=== PATIENT | female | born 1970 | race Caucasian/White ===

== ENCOUNTER 2017-03-26 17:34 | Emergency (ER) | payer OTHER ==
[2017-03-26] MEDS ORDERED: Ondansetron 4 MG/2 ML SDV IV ONE (17:41)
[2017-03-26] MEDS ORDERED: Ketorolac 30 MG/ML SDV IVPUSH ONE (17:41)
[2017-03-26] MEDS ORDERED: HYDROmorphone 1 MG/ML Syringe IVPUSH ONE ×2 (17:41→18:03)
--- NOTE | 2017-03-26 17:45 | EDM.PDOC ---
<Hira Doe David - Last Filed: 03/26/17 18:53> ED HPI GENERAL MEDICAL PROBLEM - General Chief Complaint: Upper Extremity Injury/Pain Stated Complaint: ABD AND CHEST PAINS Time Seen by Provider: 03/26/17 17:45 Source of Information: Reports: Patient, RN, RN Notes Reviewed History Limitations: Reports: No Limitations Right Neck Pain Score (Numeric/FACES): 10 - Related Data Allergies Allergy/AdvReac Type Severity Reaction Status Date / Time No Known Allergies Allergy Verified 03/26/17 17:43 Home Meds: Home Meds . [No Known Home Meds] 07/05/16 [History] Past Medical History - Past Health History Medical/Surgical History: Denies Medical/Surgical History Social & Family History - Tobacco Use Smoking Status *Q: Never Smoker - Caffeine Use Caffeine Use: Reports: Coffee - Recreational Drug Use Recreational Drug Use: No Course - Vital Signs Last Recorded V/S: Last Vital Signs Temp 36.5 C 03/26/17 17:43 Pulse 100 03/26/17 17:43 Resp 16 03/26/17 17:43 BP 147/96 H 03/26/17 17:43 Pulse Ox 98 03/26/17 17:43 - Orders/Labs/Meds Orders: Active Orders 24 hr Category Date Time Status Peripheral IV Care [RC] . DIRECTED Care 03/26/17 17:41 Active Metoclopramide [Reglan] Med 03/26/17 19:22 Once 10 mg IVPUSH ONETIME ONE Sodium Chloride 0.9% [Saline Flush] Med 03/26/17 17:41 Active 10 ml FLUSH ASDIRECTED PRN Peripheral IV Insertion Adult [OM.PC] Stat Oth 03/26/17 17:40 Ordered Medication Orders Metoclopramide HCl (Reglan) 10 mg IVPUSH ONETIME ONE Stop: 03/26/17 19:23 Sodium Chloride (Saline Flush) 10 ml FLUSH ASDIRECTED PRN PRN Reason: Keep Vein Open Last Admin: 03/26/17 17:52 Dose: 10 ml Labs: Laboratory Tests 03/26/17 03/26/17 03/26/17 Range/Units 17:44 17:44 17:44 WBC 8.4 (5.0-10.0) 10^3/uL RBC 4.23 (4.2-5.4) 10^6/uL Hgb 9.1 L (12.0-16.0) g/dL Hct 31.1 L (37.0-47.0) % MCV 73.5 L (80-100) fL MCH 21.5 L (27.0-34.0) pg MCHC 29.3 L (33.0-35.0) g/dL Plt Count 515 H (150-450) 10^3/uL Neut % (Auto) 42.2 (42.2-75.2) % Lymph % (Auto) 46.2 (20.5-50.1) % [place] % (Auto) 9.7 H (2-8) % Eos % (Auto) 1.3 (1.0-3.0) % Baso % (Auto) 0.6 (0.0-1.0) % D-Dimer, Quantitative (0-400) ng/mL Sodium 136 (135-145) mmol/L Potassium 3.7 (3.6-5.0) mmol/L Chloride 103 (101-111) mmol/L Carbon Dioxide 24.0 (21.0-31.0) mmol/L Anion Gap 12.7 BUN 8 (7-18) mg/dL Creatinine 0.7 (0.6-1.3) mg/dL Est Cr Clr Drug Dosing TNP Estimated GFR (MDRD) > 60 BUN/Creatinine Ratio 11.42 Glucose 112 H (74-105) mg/dL Calcium 9.0 (8.4-10.2) mg/dl Total Bilirubin 0.2 (0.2-1.0) mg/dL AST 25 (10-42) IU/L ALT 13 (10-60) IU/L Alkaline Phosphatase 50 (42-121) IU/L C-Reactive Protein 0.5 (0.0-1.3) mg/dL Total Protein 7.2 (6.7-8.2) g/dl Albumin 3.7 (3.2-5.5) g/dl Globulin 3.5 Albumin/Globulin Ratio 1.06 /08/02 Range/Units 17:44 WBC (5.0-10.0) 10^3/uL RBC (4.2-5.4) 10^6/uL Hgb (12.0-16.0) g/dL Hct (37.0-47.0) % MCV (80-100) fL MCH (27.0-34.0) pg MCHC (33.0-35.0) g/dL Plt Count (150-450) 10^3/uL Neut % (Auto) (42.2-75.2) % Lymph % (Auto) (20.5-50.1) % [place] % (Auto) (2-8) % Eos % (Auto) (1.0-3.0) % Baso % (Auto) (0.0-1.0) % D-Dimer, Quantitative 290 (0-400) ng/mL Sodium (135-145) mmol/L Potassium (3.6-5.0) mmol/L Chloride (101-111) mmol/L Carbon Dioxide (21.0-31.0) mmol/L Anion Gap BUN (7-18) mg/dL Creatinine (0.6-1.3) mg/dL Est Cr Clr Drug Dosing Estimated GFR (MDRD) BUN/Creatinine Ratio Glucose (74-105) mg/dL Calcium (8.4-10.2) mg/dl Total Bilirubin (0.2-1.0) mg/dL AST (10-42) IU/L ALT (10-60) IU/L Alkaline Phosphatase (42-121) IU/L C-Reactive Protein (0.0-1.3) mg/dL Total Protein (6.7-8.2) g/dl Albumin (3.2-5.5) g/dl Globulin Albumin/Globulin Ratio Meds: Medications Generic Name Dose Route Start Last Admin Trade Name Freq PRN Reason Stop Dose Admin Metoclopramide HCl 10 mg 03/26/17 19:22 Reglan IVPUSH 03/26/17 19:23 ONETIME ONE Sodium Chloride 10 ml 03/26/17 17:41 03/26/17 17:52 Saline Flush FLUSH 10 ml ASDIRECTED PRN Administration Keep Vein Open Discontinued Medications Generic Name Dose Route Start Last Admin Trade Name Freq PRN Reason Stop Dose Admin Hydromorphone HCl 1 mg 03/26/17 17:41 03/26/17 17:51 Dilaudid IVPUSH 03/26/17 17:42 1 mg ONETIME ONE Administration Hydromorphone HCl 1 mg 03/26/17 18:03 03/26/17 18:08 Dilaudid IVPUSH 03/26/17 18:04 1 mg ONETIME ONE Administration Ketorolac Tromethamine 30 mg 03/26/17 17:41 03/26/17 17:52 Toradol IVPUSH 03/26/17 17:42 30 mg ONETIME ONE Administration Ondansetron HCl 4 mg 03/26/17 17:41 03/26/17 17:52 Zofran IV 03/26/17 17:42 4 mg ONETIME ONE Administration Departure - Departure Disposition: Home, Self-Care 01 Clinical Impression: Neuralgia of right upper extremity - Discharge Information Instructions: Cervical Sprain, [id number], Shoulder Sprain Forms: ED Department Discharge Care Plan Goals: The patient was advised of the examination, CT and x-ray results during the visit. The patient was given Toradol, Zofran, Reglan and Dilaudid while in the ED for symptom relief. The patient was discharged with Toradol (10 mg) #2 to take 1 by mouth every 6 hours, Flexeril (10 mg) #1 to take at bedtime and Jaffrey (10/325) #2 to take 1 by mouth every 6 hours as needed for pain. The patient was also given a script for 1) Toradol (10 mg) #18 to take 1 by mouth every 6 hours, 2) Flexeril (10 mg) #10 to take 1 by mouth at bedtime as needed and 3) Jaffrey (10/325) #8 to take 1 by mouth every 6 hours as needed for pain. If the patient has any additional symptoms or further concerns, the patient should follow-up with her primary care facility for continued evaluation and further management. - My Orders Last 24 Hours: My Active Orders 03/26/17 19:22 Metoclopramide [Reglan] 10 mg IVPUSH ONETIME ONE - Assessment/Plan Last 24 Hours: My Active Orders 03/26/17 19:22 Metoclopramide [Reglan] 10 mg IVPUSH ONETIME ONE <Tarik Medina - Last Filed: 03/26/17 19:35> ED HPI GENERAL MEDICAL PROBLEM - History of Present Illness INITIAL COMMENTS - FREE TEXT/NARRATIVE: This 46 yo female patient reports to the ED with right sided neck and right shoulder pain. The patient reports she fell yesterday on an outstretched right arm. The patient reports she was a little stiff throughout the night, but had increased pain this afternoon. The patient reports she has taken Tylenol with no symptom relief. Onset: Today Duration: Constant, Getting Worse Location: Reports: Neck (right), Upper Extremity, Right Quality: Reports: Ache, Sharp Severity: Severe Improves with: Reports: None Worsens with: Reports: None Context: Reports: Other (fall yesterday) Associated Symptoms: Reports: Other Treatments [employer] DEVELOPER: Reports: Acetaminophen Review of Systems - Review of Systems Review Of Systems: ROS reveals no pertinent complaints other than HPI. ED EXAM, GENERAL - Physical Exam Exam: See Below Exam Limited By: No Limitations General Appearance: Alert, WD/WN, Moderate Distress, Thin Eye Exam: Bilateral Eye: EOMI, Normal Inspection, PERRL Ears: Normal External Exam, Normal Canal, Hearing Grossly Normal, Normal TMs Nose: Normal Inspection, Normal Mucosa, No Blood Throat/Mouth: Normal Inspection, Normal Lips, Normal Teeth, Normal Gums, Normal Oropharynx, Normal Voice, No Airway Compromise Head: Atraumatic, Normocephalic Neck: Limited Range of Motion, Tender Lateral (right side) Respiratory/Chest: No Respiratory Distress, Lungs Clear, Normal Breath Sounds, No Accessory Muscle Use, Chest Non-Tender Cardiovascular: Normal Peripheral Pulses, Regular Rate, Rhythm, No Edema, No Gallop, No JVD, No Murmur, No Rub GI/Abdominal: Normal Bowel Sounds, Soft, Non-Tender, No Organomegaly, No Distention, No Abnormal Bruit, No Mass (Female) Exam: Deferred Rectal (Female) Exam: Deferred Back Exam: Normal Inspection, Full Range of Motion, NT Extremities: No Pedal Edema, Normal Capillary Refill, Arm Pain (right shoulder pain (burning/stinging)) Neurological: Alert, Oriented, CN II-XII Intact, Normal Cognition, Normal Gait, Normal Reflexes, No Motor/Sensory Deficits Psychiatric: Normal Affect, Normal Mood Skin Exam: Warm, Dry, Intact, Normal Color, No Rash Lymphatic: No Adenopathy Departure - Departure Time of Disposition: 19:30 Condition: fair
[2017-03-26] MEDS: Sodium Chloride 0.9% 10 ML Syringe FLUSH PRN ×2 (17:52→19:29)
[2017-03-26 18:14] LABS: CHLORIDE,CL 103 mmol/L (101-111); SODIUM,NA 136 mmol/L (135-145)
[2017-03-26] MEDS ORDERED: Metoclopramide 10 MG/2 ML SDV IVPUSH ONE (19:22)
[2017-03-26] MEDS ORDERED: Acetaminophen/HYDROcodone 325-10 MG Tab ONE (19:42)
[2017-03-26] MEDS ORDERED: Cyclobenzaprine 10 MG Tab ONE (19:43)
[2017-03-26] MEDS ORDERED: Ketorolac 10 MG Tab PO ONE (19:43)
[2017-03-26] MEDS ORDERED: Acetaminophen/HYDROcodone 325-10 MG Tab PO ONE (19:43)
[2017-03-26] MEDS ORDERED: Cyclobenzaprine 10 MG Tab PO ONE (19:43)
[2017-03-26] MEDS ORDERED: Ketorolac 10 MG Tab ONE (19:43)
[2017-03-26 20:04] VITALS: BP 101/64
== END 2017-03-26 19:55 | disposition home or self-care (01) ==
LOC: DL.ED 17:34
DX: M79.2 Neuralgia and neuritis, unspecified (principal)
CPT/HCPCS: 36415; 72125; 73030; 80053; 85025; 85379; 86140; 96374; 96375; 99284; J1170; J1885; J2405; J2765; J7050; A9270-GY